=== PATIENT | male | born 1990 | race Caucasian/White ===

== ENCOUNTER 2019-11-03 22:54 | Emergency (ER) | payer OTHER ==
[~2019-11-03] VITALS: Ht 175.3 cm; Wt 72.6 kg
[2019-11-03] MEDS ORDERED: DICLOFENAC SODI75 MG PO (23:59)
[2019-11-03] MEDS ORDERED: NORFLEX100MG PO (23:59)
== END 2019-11-04 00:49 | disposition home or self-care (01) ==
LOC: ER 22:54
DX: S13.4XXA Sprain of ligaments of cervical spine, initial encounter (principal); V49.88XA Car occupant (driver) (passenger) injured in other specified transport accidents, initial encounter; Y93.89 Activity, other specified; Y92.413 State road as the place of occurrence of the external cause; Y99.8 Other external cause status